=== PATIENT | female | born 1985 | race Asian ===

== ENCOUNTER 2018-02-07 10:48 | Emergency (ER) | payer OTHER ==
[~2018-02-07] VITALS: Ht 157.5 cm; Wt 66.7 kg
[2018-02-07 12:51] LABS: PLATELET COUNT 249 K/uL (152-353)
[2018-02-07 12:58] LABS: POTASSIUM 3.9 mmol/L (3.6-5.2)
[2018-02-07 15:10] VITALS: BP 118/76; TEMP 98
== END 2018-02-07 15:15 | disposition home or self-care (01) ==
LOC: ED 10:48
PROVIDERS: Family Medicine
DX: N39.0 Urinary tract infection, site not specified (principal); K52.89 Other specified noninfective gastroenteritis and colitis
CPT/HCPCS: 80053; 81000; 81025; 85027; 96360; 96361; 96365; 99284; J0696; J1885; J2550

== ENCOUNTER 2022-02-03 20:05 | Emergency (ER) | payer OTHER ==
[~2022-02-03] VITALS: Ht 157.5 cm; Wt 66.7 kg
[2022-02-03 20:15] VITALS: TEMP 98.7
[2022-02-03 20:42] LABS: PLATELET COUNT 356 K/uL (152-353)
[2022-02-03 20:49] LABS: POTASSIUM 3.6 mmol/L (3.6-5.2); SODIUM 143 mmol/L (136-145)
[2022-02-03 22:30] VITALS: BP 130/74
== END 2022-02-03 22:30 | disposition home or self-care (01) ==
LOC: ED 20:05
PROVIDERS: Emergency Medicine Emergency Medical Services
DX: J45.909 Unspecified asthma, uncomplicated (principal); D64.89 Other specified anemias; N39.0 Urinary tract infection, site not specified; Z20.822 Contact with and (suspected) exposure to COVID-19
CPT/HCPCS: 80048; 81000; 81025; 84484; 85027; 87040; 87077; 87086; 87088; 87186; 87502; 87635; 93005; 94664; 96360; 96365; 96375; 99284; J0696; J2930; U0003

== ENCOUNTER 2022-04-15 07:46 | Emergency (ER) | payer OTHER ==
[~2022-04-15] VITALS: Ht 157.5 cm; Wt 80.7 kg
[2022-04-15 08:45] LABS: PLATELET COUNT 259 K/uL (152-353)
[2022-04-15 08:55] LABS: POTASSIUM 3.3 mmol/L (3.6-5.2)
[2022-04-15 12:05] VITALS: BP 124/61; TEMP 98.5
== END 2022-04-15 12:09 | disposition home or self-care (01) ==
LOC: ED 07:46
PROVIDERS: Emergency Medicine
DX: N39.0 Urinary tract infection, site not specified (principal); Z98.890 Other specified postprocedural states; E87.6 Hypokalemia; D64.89 Other specified anemias
CPT/HCPCS: 80053; 81000; 81025; 83605; 85027; 87077; 87086; 87088; 87186; 96360; 96365; 96375; 99284; J0696; J1170; J2405; Q9963

== ENCOUNTER 2022-06-13 02:04 | Emergency (ER) | payer OTHER ==
[~2022-06-13] VITALS: Ht 157.5 cm; Wt 85.7 kg
[2022-06-13] MEDS ORDERED: ALBU90AE13 INH (02:12)
[2022-06-13 02:56] LABS: PLATELET COUNT 424 K/uL (152-353)
[2022-06-13 03:02] LABS: POTASSIUM 3.5 mmol/L (3.6-5.2); SODIUM 139 mmol/L (136-145)
[2022-06-13 05:35] VITALS: BP 105/65; TEMP 97.1
== END 2022-06-13 05:35 | disposition home or self-care (01) ==
LOC: ED 02:04
PROVIDERS: Family Medicine
DX: J45.901 Unspecified asthma with (acute) exacerbation (principal); D64.89 Other specified anemias
CPT/HCPCS: 36415; 80053; 82550; 84484; 84702; 85027; 85610; 85730; 93005; 94664; 96374; 99284; J2930

== ENCOUNTER 2022-11-26 02:13 | Emergency (ER) | payer OTHER ==
[~2022-11-26] VITALS: Ht 157.5 cm; Wt 74.4 kg
[~2022-11-26 02:13] MED LIST: ALBU90AE13 INH
[2022-11-26 02:20] VITALS: TEMP 98.8
[2022-11-26 03:12] LABS: PLATELET COUNT 281 K/uL (152-353)
[2022-11-26 03:44] LABS: POTASSIUM 4.3 mmol/L (3.6-5.2)
[2022-11-26 06:35] VITALS: BP 105/48
== END 2022-11-26 06:35 | disposition home or self-care (01) ==
LOC: ED 02:13
PROVIDERS: Family Medicine
DX: N39.0 Urinary tract infection, site not specified (principal)
CPT/HCPCS: 36415; 80053; 81000; 81025; 85027; 87077; 87086; 87088; 87186; 96360; 96361; 96374; 96375; 99284; J0696; J1885